=== PATIENT | female | born 1955 | race African-American/Black ===

== ENCOUNTER → 2016-10-31 | Emergency (ER) | payer OTHER ==
[~2016-10-31] VITALS: Ht 175.3 cm; Wt 90.7 kg
[~2016-10-31] MED LIST: DILANTIN100 MG ORAL; PHENOBARBITAL100 MG ORAL; PHENOBARBITAL30 MG ORAL; Phenytoin 100mg cap ORAL ONE
[2016-10-31 13:37] VITALS: BP 127/87
[2016-10-31 14:30] VITALS: BP 134/81
[2016-10-31 14:41] LABS: BASOPHILS % (AUTO) 0.4 % (0.0-2.0); EOSINOPHILS % (AUTO) 0.8 % (0.0-3.0); LYMPHOCYTES % (AUTO) 14.2 % (20.0-45.0); MEAN CORPUSCULAR HEMOGLOBIN 28.2 PG (27.0-31.0); MEAN CORPUSCULAR HGB CONC 31.5 G/DL (32.0-36.0); MEAN CORPUSCULAR VOLUME 90 FL (80-99); MEAN PLATELET VOLUME 6.3 FL (6.5-10.1); NEUTROPHILS % (AUTO) 80.6 % (45.0-75.0); PLATELET COUNT 252 K/UL (150-450); RED BLOOD COUNT 5.17 M/UL (4.20-5.40); RED CELL DISTRIBUTION WIDTH 13.1 % (11.6-14.8); WHITE BLOOD COUNT 10.7 K/UL (4.8-10.8)
[2016-10-31 14:48] LABS: ANION GAP 17 (5-15); CALCIUM 9.7 mg/dL (8.6-10.2); CARBON DIOXIDE 23 mEQ/L (20-30); CHLORIDE 99 mEQ/L (98-107); CREATININE 0.7 mg/dL (0.5-0.9); GLOMERULAR FILTRATION RATE > 60 mL/min (>60); HEMOLYSIS 28; SODIUM 139 mEQ/L (135-145)
--- NOTE | 2016-10-31 14:51 | Emergency Room Report ---
History of Present Illness General Chief Complaint: Seizure Source: Patient, EMS Present Illness HPI Patient reports a history of seizure disorder she stopped taking her medications Several months ago as she was not having any further seizures Denies any chest pain or shortness breath Denies any neck pain or photophobia At this time his GCS 15 Patient was taking phenobarbital when necessary And Dilantin Denies any recent other trauma or fall Denies any focal weakness Allergies: Coded Allergies: No Known Allergies (Unverified , 10/31/16) Patient History Past Medical History: see triage record Pertinent Family History: none Reviewed Nursing Documentation: PMH: Agreed, PSxH: Agreed Nursing Documentation-PMH Hx Seizures: Yes Review of Systems All Other Systems: negative except mentioned in HPI Physical Exam Vital Signs Date Time Temp Pulse Resp B/P Pulse Ox O2 Delivery O2 Flow Rate FiO2 10/31/16 13:25 100 18 127/87 98 Room Air 10/31/16 13:37 98.0 Sp02 EP Interpretation: reviewed, normal General Appearance: well appearing, no apparent distress Head: normocephalic, atraumatic Eyes: bilateral eye EOMI, bilateral eye PERRL ENT: hearing grossly normal, normal pharynx, TMs + canals normal, uvula midline Neck: full range of motion, supple, no meningismus, no bony tend Respiratory: lungs clear, normal breath sounds, no rhonchi, no respiratory distress, no retraction, no accessory muscle use Cardiovascular #1: normal peripheral pulses, regular rate, rhythm, no edema, no gallop, no JVD, no murmur Gastrointestinal: normal bowel sounds, non tender, soft, no mass, no organomegaly, non-distended, no guarding, no hernia, no pulsatile mass, no rebound Genitourinary: no CVA tenderness Musculoskeletal: normal inspection Neurologic: oriented x3, responsive, stick welder III-XII nml as tested, motor strength/ tone normal, sensory intact Psychiatric: mood/affect normal Skin: normal color, no rash, warm/dry, palpation normal Lymphatic: normal inspection, no adenopathy Medical Decision Making Diagnostic Impression: Primary Impression: Seizure disorder ER Course Patient has at this time fully awake and alert GCS 15 Has a history of seizure disorder and therefore CAT scan imaging was not obtained Patient is already aware that she is not supposed to be driving and states that she does not drive Given her noncompliance of medication she was replaced with her Dilantin and phenobarbital baseline blood work are appropriate The patient discharged in stable condition Labs Test 10/31/16 14:30 White Blood Count 10.7 K/UL (4.8-10.8) Red Blood Count 5.17 M/UL (4.20-5.40) Hemoglobin 14.6 G/DL (12.0-16.0) Hematocrit 46.3 % (37.0-47.0) Mean Corpuscular Volume 90 FL (80-99) Mean Corpuscular Hemoglobin 28.2 PG (27.0-31.0) Mean Corpuscular Hemoglobin Concent 31.5 G/DL (32.0-36.0) Red Cell Distribution Width 13.1 % (11.6-14.8) Platelet Count 252 K/UL (150-450) Mean Platelet Volume 6.3 FL (6.5-10.1) Neutrophils (%) (Auto) 80.6 % (45.0-75.0) Lymphocytes (%) (Auto) 14.2 % (20.0-45.0) Monocytes (%) (Auto) 4.0 % (1.0-10.0) Eosinophils (%) (Auto) 0.8 % (0.0-3.0) Basophils (%) (Auto) 0.4 % (0.0-2.0) Sodium Level 139 mEQ/L (135-145) Potassium Level 4.0 mEQ/L (3.4-4.9) Chloride Level 99 mEQ/L (98-107) Carbon Dioxide Level 23 mEQ/L (20-30) Anion Gap 17 (5-15) Blood Urea Nitrogen 11 mg/dL (7-23) Creatinine 0.7 mg/dL (0.5-0.9) Estimat Glomerular Filtration Rate > 60 mL/min (>60) Glucose Level 104 mg/dL (74-106) Calcium Level 9.7 mg/dL (8.6-10.2) Last Vital Signs Date Time Temp Pulse Resp B/P Pulse Ox O2 Delivery O2 Flow Rate FiO2 10/31/16 13:37 100 18 Room Air 10/31/16 13:37 98.0 127/87 98 Status: improved Disposition: HOME, SELF-CARE Condition: Improved Scripts Phenobarbital* (PHENOBARBITAL*) 30 Mg Tablet 30 MG ORAL THREE TIMES A DAY, #30 TAB 0 Refills Prov: KAUSHAL HERRERA D.O. 10/31/16 Phenytoin Sodium Extended* (DILANTIN*) 100 Mg Capsule 100 MG ORAL THREE TIMES A DAY, #90 CAP 0 Refills Prov: KAUSHAL HERRERA D.O. 10/31/16 Additional Instructions: Patient is provided with the discharge instructions notified to follow up with primary doctor in the next 2-3 days otherwise return to the er with any worsening symptoms. Please note that this report is being documented using [employer] technology. This can lead to erroneous entry secondary to incorrect interpretation by the dictating instrument. KAUSHAL HERRERA D.O. Oct 31, 2016 14:51
[2016-10-31 15:40] VITALS: BP 134/81
== END | disposition home or self-care (01) ==
LOC: EDBD 13:32 → EMR 15:45
DX: G40.909 Epilepsy, unspecified, not intractable, without status epilepticus (principal)
CPT/HCPCS: 36415; 80048; 85025; 99284

== ENCOUNTER 2017-04-10 21:41 | Emergency (ER) | payer OTHER ==
[~2017-04-10] VITALS: Ht 170.2 cm; Wt 90.7 kg
[~2017-04-10 21:41] MED LIST changes: -Phenytoin 100mg cap ORAL ONE
[2017-04-10] MEDS ORDERED: levETIRAcetam 1,000mg/NS100ml 100 ML IVPB ONE (22:15)
[2017-04-10 22:40] VITALS: BP 136/82
[2017-04-10 23:05] VITALS: BP 140/71
[2017-04-10] MEDS ORDERED: Miralax 17gm pkt ORAL PRN (23:15)
[2017-04-10] MEDS ORDERED: Zolpidem 5mg tab ORAL PRN (23:15)
[2017-04-10] MEDS ORDERED: LORazepam Inj 2mg/ml 1ml IV PRN (23:15)
[2017-04-10] MEDS ORDERED: Morphine Sulfate 2mg/ml Inj IVP PRN (23:15)
[2017-04-10] MEDS ORDERED: Mylanta II UD 30ml ORAL PRN (23:15)
[2017-04-10] MEDS ORDERED: KEPPRA500 M4 ORAL (23:42)
--- NOTE | 2017-04-10 23:43 | Emergency Room Report ---
History of Present Illness General Chief Complaint: Seizure Source: Patient, Medical Record Present Illness HPI This is a 62-year-old female with a history of seizure. She takes phenobarbital Dilantin. She's her Dilantin gives her a headache and dizziness. She is compliant however. Her daughter called 911 because she has a tonic- clonic seizure activity lasting for about 10 minutes. She did have oral trauma incontinence or urine. EMS gave her Versed. She was postictal on arrival. After about 10 minutes she is awake and back to baseline. Allergies: Coded Allergies: No Known Allergies (Unverified , 10/31/16) Patient History Past Medical History: see triage record, old chart reviewed, seizures Past Surgical History: other Pertinent Family History: none Social History: Denies: smoking Last Menstrual Period: unknow Now: No Immunizations: other Reviewed Nursing Documentation: PMH: Agreed, PSxH: Agreed Nursing Documentation-PMH Past Medical History: No History, Except For Hx Seizures: Yes Review of Systems Eye: Denies: blurred vision, eye pain ENT: Denies: ear pain, nose congestion, throat swelling Respiratory: Denies: cough, shortness of breath Cardiovascular: Denies: chest pain, palpitations Gastrointestinal: Denies: abdominal pain, diarrhea, nausea, vomiting Musculoskeletal: Denies: back pain, joint pain Skin: Denies: rash Neurological: Denies: headache, numbness Endocrine: Denies: increased thirst, increased urine Hematologic/Lymphatic: Denies: easy bruising All Other Systems: negative except mentioned in HPI Physical Exam Vital Signs Date Time Temp Pulse Resp B/P Pulse Ox O2 Delivery O2 Flow Rate FiO2 04/10/17 21:38 98.8 90 20 136/82 98 Room Air vitals normal Sp02 EP Interpretation: reviewed, normal General Appearance: well appearing, no apparent distress, alert Head: normocephalic, atraumatic Eyes: bilateral eye EOMI, bilateral eye PERRL ENT: hearing grossly normal, normal pharynx, other - Tongue abrasion on left side Neck: full range of motion, supple, no meningismus Respiratory: chest non-tender, lungs clear, normal breath sounds Cardiovascular #1: regular rate, rhythm, no murmur Gastrointestinal: normal bowel sounds, non tender, no mass, no organomegaly, no bruit, non-distended Musculoskeletal: back normal, gait/station normal, normal range of motion Psychiatric: mood/affect normal Skin: warm/dry Medical Decision Making Diagnostic Impression: Primary Impression: Epileptic seizure, generalized ER Course patient was seizure activity. We'll switch to Keppra. Back to baseline. No need for labs or CT scan. Last Vital Signs Date Time Temp Pulse Resp B/P Pulse Ox O2 Delivery O2 Flow Rate FiO2 04/10/17 22:40 98.8 20 136/82 98 Room Air 04/10/17 21:38 90 Status: improved Disposition: HOME, SELF-CARE Condition: Stable Scripts Levetiracetam (KEPPRA) 500 Mg Tablet 500 MG ORAL EVERY 12 HOURS, #60 TAB 0 Refills Prov: LUISITO RICHARDS M.D. 04/10/17 Referrals: Vandana TAMEZ,REFERRING (PCP) Patient Instructions: Seizure, Adult Additional Instructions: Followup with your Dr. in 2-3 days. Return if symptom worsen. LUISITO RICHARDS M.D. Apr 10, 2017 23:42
[2017-04-11] MEDS ORDERED: Heparin 5000 units/ml inj SUBQ SCH (09:00)
[2017-04-11] MEDS ORDERED: Phenytoin 100mg cap ORAL SCH (09:00)
== END 2017-04-10 23:05 | disposition home or self-care (01) ==
LOC: EDBD 21:41 → EMR 22:18
DX: G40.909 Epilepsy, unspecified, not intractable, without status epilepticus (principal); S00.512A Abrasion of oral cavity, initial encounter; X58.XXXA Exposure to other specified factors, initial encounter; Y93.9 Activity, unspecified; Y92.9 Unspecified place or not applicable
CPT/HCPCS: 96360; 99284; J1953

== ENCOUNTER 2018-09-23 18:32 | Inpatient (IN) | payer MEDICARE, OTHER ==
[~2018-09-23] VITALS: Ht 176.5 cm; Wt 83.5 kg
[~2018-09-23 18:32] MED LIST changes: +KEPPRA500 M4 ORAL
--- NOTE | 2018-09-23 22:05 | NUR ---
NURSE NOTES: Received pt from Ambulance personnel, took report from EBONY Machado over the phone. Pt awake, alert, and c/o pain. Seizure precautions in place. Skin intact. Pt slightly lethargic. Bed in lowest position. Call light within reach. Lung sounds clear. Will contact Dr. Alvarado for orders. Will continue to monitor.
--- NOTE | 2018-09-23 22:11 | NUR ---
NURSE NOTES: Called and left a message with Dr. Alvarado for admission orders. Awaiting call back.
[2018-09-24] MEDS ORDERED: LORazepam Inj 2mg/ml 1ml IV PRN
[2018-09-24] MEDS ORDERED: OXCARBAZEPINE300 MG PO (00:46)
[2018-09-24] MEDS: cefTRIAXone 1 GM in D5W 55 ML IVPB SCH (03:00)
[2018-09-24 04:51] VITALS: BP 152/86
--- NOTE | 2018-09-24 05:46 | NUR ---
NURSE NOTES: Daughter informed me that [facility] documentation on the pts home meds is wrong, She actually only takes trileptal and zonisamide at home. Called and left a message with Dr. Alvarado informing him of the changes to home meds. Awaiting call back.
[2018-09-24] MEDS ORDERED: Phenytoin 100mg cap ORAL SCH (06:00)
--- NOTE | 2018-09-24 07:30 | NUR ---
NURSE NOTES: Received report from Paige BECK. Pt is awake, alert, oriented x4, resting in bed. On room air with no respiratory distress. Reports mild chronic back pain, will offer PRN pain med as needed/ordered. IV access on left hand #22G saline lock, patent/intact. Skin is intact. Per shift production associate nurse report and verification from pt, pt is ambulatory with steady gait. Pt is on seizure precaution, side rails padded, suction and oxygen access set up at bedside. Call light is placed within easy reach, bed in lowest position, two side rails up, brakes engaged.
[2018-09-24 08:00] VITALS: BP 151/88
[2018-09-24 08:21] LABS: BASOPHILS % (AUTO) 0.7 % (0.0-2.0); EOSINOPHILS % (AUTO) 0.3 % (0.0-3.0); HEMATOCRIT 40.2 % (37.0-47.0); HEMOGLOBIN 13.2 G/DL (12.0-16.0); MEAN CORPUSCULAR VOLUME 91 FL (80-99); MONOCYTES % (AUTO) 6.1 % (1.0-10.0); PLATELET COUNT 243 K/UL (150-450); RED CELL DISTRIBUTION WIDTH 12.8 % (11.6-14.8); WHITE BLOOD COUNT 8.9 K/UL (4.8-10.8)
[2018-09-24 08:58] LABS: ALANINE AMINOTRANSFERASE 22 U/L (12-78); ALBUMIN 3.6 G/DL (3.4-5.0); ALBUMIN/GLOBULIN RATIO 0.8 (1.0-2.7); ALKALINE PHOSPHATASE 77 U/L (46-116); ANION GAP 9 mmol/L (5-15); ASPARTATE AMINO TRANSFERASE 20 U/L (15-37); BILIRUBIN,TOTAL 0.5 MG/DL (0.2-1.0); BLOOD UREA NITROGEN 12 mg/dL (7-18); CALCIUM 9.7 MG/DL (8.5-10.1); CARBON DIOXIDE 26 MMOL/L (21-32); CHLORIDE 104 MMOL/L (98-107); CREATININE 0.8 MG/DL (0.55-1.30); PHOSPHORUS 2.7 MG/DL (2.5-4.9); POTASSIUM 3.5 MMOL/L (3.5-5.1); SODIUM 139 MMOL/L (136-145)
[2018-09-24] MEDS: OXcarbazepine 150mg tab ORAL SCH (10:02)
[2018-09-24 12:00] VITALS: BP 168/91
--- NOTE | 2018-09-24 13:28 | Consultation ---
History of Present Illness General Date patient seen: Sep 24, 2018 Present Illness HPI 63 year female with hx of seizures, stopped her seizure medications some time ago, had seizures again was taken to [facility]. After initial treatment she is transferred to [facility] for further management. She is awake now and doesn't remember what exactly happened. Allergies: Coded Allergies: No Known Allergies (Unverified , 10/31/16) Medication History Scheduled Levetiracetam (Keppra), 500 MG ORAL EVERY 12 HOURS Phenobarbital (Phenobarbital), 100 MG ORAL EVERY 8 HOURS, (Reported) Phenobarbital* (Phenobarbital*), 30 MG ORAL THREE TIMES A DAY Phenytoin Sodium Extended* (Dilantin*), 100 MG ORAL THREE TIMES A DAY, (Reported ) Phenytoin Sodium Extended* (Dilantin*), 300 MG ORAL BEDTIME, (Reported) Phenytoin Sodium Extended* (Dilantin*), 100 MG ORAL THREE TIMES A DAY Miscellaneous Medications Oxcarbazepine (Oxcarbazepine), 300 MG PO, (Reported) Patient History Healthcare decision maker Laurence Resuscitation status Full Code Advanced Directive on File Past Medical/Surgical History Past Medical/Surgical History: (1) Seizure disorder Review of Systems All Other Systems: negative except mentioned in HPI Physical Exam General Appearance: WD/WN Lines, tubes and drains: peripheral, central line HEENT: normocephalic, anicteric Neck: non-tender, normal alignment Respiratory/Chest: chest wall non-tender, lungs clear Breasts: no masses Cardiovascular/Chest: normal rate Abdomen: normal bowel sounds, no organomegaly Genitourinary/Rectal: normal genital exam Last 24 Hour Vital Signs Date Time Temp Pulse Resp B/P (MAP) Pulse Ox O2 Delivery O2 Flow Rate FiO2 09/24/18 12:00 98.2 85 16 168/91 (116) 98 09/24/18 09:00 Room Air 09/24/18 08:00 98.6 66 18 151/88 (109) 97 09/24/18 08:00 66 09/24/18 04:51 99.5 80 18 152/86 (108) 97 09/24/18 04:00 64 09/24/18 03:03 Room Air 09/24/18 00:00 72 Intake and Output 09/23/18 09/24/18 19:00 07:00 Intake Total 100 ml Balance 100 ml Intake Oral 100 ml Laboratory Tests Test 09/24/18 07:35 White Blood Count 8.9 K/UL (4.8-10.8) Red Blood Count 4.40 M/UL (4.20-5.40) Hemoglobin 13.2 G/DL (12.0-16.0) Hematocrit 40.2 % (37.0-47.0) Mean Corpuscular Volume 91 FL (80-99) Mean Corpuscular Hemoglobin 30.1 PG (27.0-31.0) Mean Corpuscular Hemoglobin Concent 32.9 G/DL (32.0-36.0) Red Cell Distribution Width 12.8 % (11.6-14.8) Platelet Count 243 K/UL (150-450) Mean Platelet Volume 6.4 FL (6.5-10.1) L Neutrophils (%) (Auto) 73.0 % (45.0-75.0) Lymphocytes (%) (Auto) 20.0 % (20.0-45.0) Monocytes (%) (Auto) 6.1 % (1.0-10.0) Eosinophils (%) (Auto) 0.3 % (0.0-3.0) Basophils (%) (Auto) 0.7 % (0.0-2.0) Sodium Level 139 MMOL/L (136-145) Potassium Level 3.5 MMOL/L (3.5-5.1) Chloride Level 104 MMOL/L (98-107) Carbon Dioxide Level 26 MMOL/L (21-32) Anion Gap 9 mmol/L (5-15) Blood Urea Nitrogen 12 mg/dL (7-18) Creatinine 0.8 MG/DL (0.55-1.30) Estimat Glomerular Filtration Rate > 60 mL/min (>60) Glucose Level 96 MG/DL (74-106) Calcium Level 9.7 MG/DL (8.5-10.1) Phosphorus Level 2.7 MG/DL (2.5-4.9) Magnesium Level 2.1 MG/DL (1.8-2.4) Total Bilirubin 0.5 MG/DL (0.2-1.0) Aspartate Amino Transf (AST/SGOT) 20 U/L (15-37) Alanine Aminotransferase (ALT/SGPT) 22 U/L (12-78) Alkaline Phosphatase 77 U/L (46-116) Total Protein 8.0 G/DL (6.4-8.2) Albumin 3.6 G/DL (3.4-5.0) Globulin 4.4 g/dL Albumin/Globulin Ratio 0.8 (1.0-2.7) L Height (Feet): 5 Height (Inches): 9.50 Weight (Pounds): 184 Medications Current Medications Medications (Trade) Dose Ordered Sig/Trey Route PRN Reason Start Time Stop Time Status Last Admin Dose Admin Acetaminophen (Tylenol) 650 mg Q6H PRN ORAL Mild Pain/Temp > 100.5 09/24/18 00:00 10/24/18 00:00 09/24/18 04:10 Ceftriaxone Sodium 1 gm/ Dextrose 55 ml @ 110 mls/hr Q24H IVPB 09/24/18 03:00 10/01/18 02:59 09/24/18 03:00 Heparin Sodium (Porcine) (Heparin 5000 units/ml) 5,000 units EVERY 12 HOURS SUBQ 09/24/18 21:00 10/24/18 20:59 Lorazepam (Ativan 2mg/ml 1ml) 1 mg Q4H PRN IV For Anxiety 09/24/18 00:00 10/01/18 00:00 Oxcarbazepine (Trileptal) 300 mg DAILY ORAL 09/24/18 09:00 10/24/18 08:59 09/24/18 10:02 Zonisamide (Zonegran) 200 mg QHS ORAL 09/24/18 21:00 10/24/18 20:59 Assessment/Plan Problem List: (1) Non-compliance ICD Codes: Z91.19 - Patient's noncompliance with other medical treatment and regimen SNOMED: 0096366 (2) Acute encephalopathy ICD Codes: G93.40 - Encephalopathy, unspecified SNOMED: 59097856, 000090457 (3) Seizure disorder ICD Codes: G40.909 - Epilepsy, unspecified, not intractable, without status epilepticus SNOMED: 203354521 Assessment/Plan resume seizure meds neurology to see dvt prophylaxis symptomatic treatment Gill Monzon MD Sep 24, 2018 13:28
[2018-09-24] MEDS: Phenytoin 100mg cap ORAL SCH ×2 (14:51→21:14)
[2018-09-24 16:00] VITALS: BP 155/59
--- NOTE | 2018-09-24 16:31 | NUR ---
CASE MANAGEMENT:REVIEW 09/24/18 TRANSFERRED FROM FROM [facility] CC: NON COMPLIANT WITH MEDICATION SI: SEIZURE DISORDER ACUTE ENCEPHALOPATHY 98.2 85 16 168/91 98% ON RA IS: KEPPRA PO Q12 PHENOBARBITAL PO Q8 DILANTIN PO Q8 TRILEPTAL PO QD IV ROCEPHIN Q24 : TELEMETRY
--- NOTE | 2018-09-24 16:41 | NUR ---
INTERQUAL CRITERIA MET FOR OBSERVATION
--- NOTE | 2018-09-24 19:00 | History & Physical ---
History and Physical History & Physicial Dictated for Int Med-Dr Alvarado no. [id number]. Khari Valdez MD Sep 24, 2018 19:00
--- NOTE | 2018-09-24 19:28 | NUR ---
HAND-OFF: Report given to Jose Eduardo BECK. Pt is resting in bed in stable condition. Endorsed plan of care.
--- NOTE | 2018-09-24 19:30 | NUR ---
NURSE NOTES: Received report from EBONY Boo. Patient resting in bed with no signs of acute distress. Respiration even and non labored on room air. Seizure precaution observed. Side rails padded. Bed in lowest position. AOx4. Vital signs stable. Will continue plan of care.
[2018-09-24 20:00] VITALS: BP 161/86
--- NOTE | 2018-09-24 21:15 | History and Physical Report ---
DATE OF ADMISSION: 09/23/2018 DATE OF EVALUATION: 09/24/2018 CHIEF COMPLAINT: The patient is a 63-year-old, female with a history of seizure disorder who presents with complaint of seizure. HISTORY OF PRESENT ILLNESS: The patient states she ran out of her medications approximately 5 days ago. The patient was at home with her mother yesterday, 09/23/2018. The patient had several witnessed seizures by her mother. EMS was called. The patient was transported initially to [facility] emergency room. The patient is transferred to [facility] for insurance purposes. The patient presents with a chief complaint of seizures. REVIEW OF SYSTEMS: CONSTITUTIONAL: The patient denies weight loss or gain. The patient denies fevers or chills. HEENT: The patient denies ear or throat pain. The patient denies headache. CARDIOVASCULAR: The patient denies palpitations or chest pain. CHEST: The patient denies wheeze or shortness of breath. ABDOMEN: The patient denies nausea, vomiting, diarrhea, or constipation. GENITOURINARY: The patient denies dysuria or increased frequency of urination. NEUROMUSCULAR: The patient complains of seizure disorder as above. The patient denies generalized weakness. PAST MEDICAL HISTORY: Significant for: 1. Seizure disorder. 2. Hypertension. PAST SURGICAL HISTORY: Significant for section x3. CURRENT MEDICATIONS: 1. Oxcarbazepine 300 mg 1 tablet p.o. daily. 2. Dilantin 100 mg p.o. 3 times daily. 3. Phenobarbital 30 mg p.o. 3 times daily. ALLERGIES: No known drug allergies. SOCIAL HISTORY: The patient is single and lives alone. The patient admits to tobacco use of one-quarter pack per day. The patient denies alcohol use. PHYSICAL EXAMINATION: VITAL SIGNS: Temperature 100.0 degrees Fahrenheit, pulse 85, blood pressure 136/87, and respirations 18. GENERAL: The patient is a well-developed, well-nourished female, in no apparent distress. HEENT: Eyes, pupils equal and responsive to light and accommodation. Extraocular movements are intact. NECK: Supple. No lymphadenopathy. CHEST: Lungs are clear to auscultation bilaterally without wheezes or rales. CARDIOVASCULAR: Regular rhythm and rate. S1, S2 normal without murmurs, rubs, or gallops. ABDOMEN: Soft, nontender, nondistended. Positive bowel sounds. No evidence of hepatosplenomegaly. Currently, no rebound or guarding noted. EXTREMITIES: No clubbing, cyanosis, edema. RECTAL/GENITAL: Refused. NEUROLOGIC: Cranial nerves II through XII are grossly intact without focal deficits. Motor strength is 5/5 bilaterally. Deep tendon reflexes are 2+ plantar. LABORATORY STUDIES: WBC 11.0, hemoglobin 13.3, hematocrit 40.0, and platelets 242,000. Sodium 137, potassium 4.5, chloride 103, CO2 23, BUN 10, creatinine 0.65, and glucose 98. ASSESSMENT: This is a 63-year-old female. 1. Seizure disorder. 2. Hypertension. 3. Postictal. TREATMENT: 1. Seizure. The patient has been started empirically on Keppra, phenobarbital, Dilantin and Trileptal. A neurology consultation has been obtained with Dr. De Luna. We will follow recommendations of Dr. De Luna. 2. Hypertension. The patient is currently on amlodipine 10 mg p.o. daily. 3. Postictal state. Khari Valdez M.D. DR: TONEY JOB#: [id number] CC:
[2018-09-24] MEDS: Heparin 5000 units/ml inj SUBQ SCH (21:17)
[2018-09-25] VITALS: BP 159/85
[2018-09-25] MEDS: cefTRIAXone 1 GM in D5W 55 ML IVPB SCH (03:06)
[2018-09-25 04:00] VITALS: BP 168/91
[2018-09-25] MEDS: Phenytoin 100mg cap ORAL SCH (05:48)
--- NOTE | 2018-09-25 06:55 | NUR ---
HAND-OFF: Report given to EBONY Lowe. Patient in bed asleep. Vitals signs stable.
--- NOTE | 2018-09-25 07:00 | NUR ---
NURSE NOTES: Received report from EBONY Phelan. Patient is resting in bed, in stable condition. No s/sx of SOB, breathing is even and unlabored. Denies any presence of pain or discomfort at this time. Bed is in lowest position, brakes engaged. Call light is kept within easy reach. Will continue to monitor patient.
[2018-09-25 07:50] LABS: BASOPHILS % (AUTO) 0.4 % (0.0-2.0); EOSINOPHILS % (AUTO) 0.3 % (0.0-3.0); HEMATOCRIT 41.7 % (37.0-47.0); HEMOGLOBIN 13.7 G/DL (12.0-16.0); MEAN CORPUSCULAR VOLUME 91 FL (80-99); MONOCYTES % (AUTO) 5.8 % (1.0-10.0); NEUTROPHILS % (AUTO) 72.6 % (45.0-75.0); PLATELET COUNT 230 K/UL (150-450); RED BLOOD COUNT 4.58 M/UL (4.20-5.40); RED CELL DISTRIBUTION WIDTH 12.6 % (11.6-14.8); WHITE BLOOD COUNT 8.2 K/UL (4.8-10.8)
[2018-09-25 08:22] LABS: ANION GAP 10 mmol/L (5-15); BLOOD UREA NITROGEN 9 mg/dL (7-18); CALCIUM 9.9 MG/DL (8.5-10.1); CARBON DIOXIDE 26 MMOL/L (21-32); CHLORIDE 104 MMOL/L (98-107); CREATININE 0.8 MG/DL (0.55-1.30); POTASSIUM 3.7 MMOL/L (3.5-5.1); SODIUM 140 MMOL/L (136-145)
[2018-09-25] MEDS: OXcarbazepine 150mg tab ORAL SCH (08:32)
[2018-09-25] MEDS: Heparin 5000 units/ml inj SUBQ SCH (08:34)
[2018-09-25 09:00] VITALS: BP 143/81
--- NOTE | 2018-09-25 10:46 | NUR ---
TRANSFER TO FLOOR: Patient transferred to [facility], per Dr. Monzon. Report given to EBONY Wood. Belongings and medications given to EBONY Wood. Family informed of transfer.
--- NOTE | 2018-09-25 10:46 | NUR ---
NURSE NOTES: Received patient from Mynor RN, patient belongings reviewed, no discrepancies noted, no distress noted, patient is alert and cooperative and pleasant, bed is locked and in lowest position, call light within reach, will continue to monitor.
--- NOTE | 2018-09-25 10:58 | Pulmonology Progress Note ---
Assessment/Plan Problems: (1) Non-compliance (2) Acute encephalopathy (3) Seizure disorder Assessment/Plan no more seizures pt wants to go home med/recon done f/u by neurologist as outpatient prescription done Subjective ROS Limited/Unobtainable: No Constitutional: Reports: no symptoms HEENT: Repors: no symptoms Respiratory: Reports: no symptoms Allergies: Coded Allergies: No Known Allergies (Unverified , 10/31/16) Objective Last 24 Hour Vital Signs Date Time Temp Pulse Resp B/P (MAP) Pulse Ox O2 Delivery O2 Flow Rate FiO2 09/25/18 09:00 97.7 83 20 143/81 (101) 99 09/25/18 09:00 Room Air 09/25/18 08:31 71 143/81 09/25/18 04:00 98.4 77 20 168/91 (116) 99 09/25/18 04:00 72 09/25/18 00:00 65 09/25/18 00:00 98.3 70 18 159/85 (109) 96 09/24/18 21:00 Room Air 09/24/18 20:00 65 09/24/18 20:00 98.9 66 18 161/86 (111) 94 09/24/18 16:00 64 09/24/18 16:00 97.9 68 18 155/59 (91) 95 09/24/18 15:24 98.2 09/24/18 14:52 85 168/91 09/24/18 12:00 98.2 85 16 168/91 (116) 98 09/24/18 12:00 65 Intake and Output 09/24/18 09/25/18 19:00 07:00 Intake Total 450 ml 300 ml Balance 450 ml 300 ml Intake Oral 300 ml Other 450 ml General Appearance: WD/WN HEENT: normocephalic, atraumatic, PERRL Respiratory/Chest: lungs clear, no respiratory distress Breasts: no masses Cardiovascular: regular rhythm Abdomen: normal bowel sounds Genitourinary: normal external genitalia Skin: no rash Neurologic/Psychiatric: head of product II-XII grossly normal Laboratory Tests 09/25/18 06:20: White Blood Count 8.2, Red Blood Count 4.58, Hemoglobin 13.7, Hematocrit 41.7, Mean Corpuscular Volume 91, Mean Corpuscular Hemoglobin 30.0, Mean Corpuscular Hemoglobin Concent 32.9, Red Cell Distribution Width 12.6, Platelet Count 230, Mean Platelet Volume 6.1L, Neutrophils (%) (Auto) 72.6, Lymphocytes (%) (Auto) 21.0, Monocytes (%) (Auto) 5.8, Eosinophils (%) (Auto) 0.3, Basophils (%) (Auto ) 0.4, Sodium Level 140, Potassium Level 3.7, Chloride Level 104, Carbon Dioxide Level 26, Anion Gap 10, Blood Urea Nitrogen 9, Creatinine 0.8, Estimat Glomerular Filtration Rate > 60, Glucose Level 102, Calcium Level 9.9 Current Medications Medications (Trade) Dose Ordered Sig/Trey Route PRN Reason Start Time Stop Time Status Last Admin Dose Admin Acetaminophen (Tylenol) 650 mg Q6H PRN ORAL Mild Pain/Temp > 100.5 09/25/18 11:00 10/24/18 10:59 Amlodipine Besylate (Norvasc) 10 mg DAILY ORAL 09/26/18 09:00 10/24/18 14:41 Ceftriaxone Sodium 1 gm/ Dextrose 55 ml @ 110 mls/hr Q24H IVPB 09/26/18 03:00 10/01/18 02:59 Heparin Sodium (Porcine) (Heparin 5000 units/ml) 5,000 units EVERY 12 HOURS SUBQ 09/25/18 21:00 10/24/18 20:59 Levetiracetam (Keppra) 500 mg EVERY 12 HOURS ORAL 09/25/18 21:00 10/24/18 20:59 Lorazepam (Ativan 2mg/ml 1ml) 1 mg Q4H PRN IV For Anxiety 09/25/18 11:00 10/01/18 10:59 Oxcarbazepine (Trileptal) 300 mg DAILY ORAL 09/26/18 09:00 10/24/18 08:59 Phenobarbital (PHENobarbital) 97.2 mg EVERY 8 HOURS ORAL 09/25/18 14:00 10/24/18 13:59 Phenytoin (Dilantin) 100 mg Q8HR ORAL 09/25/18 14:00 10/24/18 13:59 Zonisamide (Zonegran) 200 mg QHS ORAL 09/25/18 21:00 10/24/18 20:59 Gill Monzon MD Sep 25, 2018 10:58
[2018-09-25] MEDS ORDERED: TRILEPTAL150 M2 ORAL (11:00)
[2018-09-25] MEDS ORDERED: DILANTIN100 MG ORAL (11:00)
[2018-09-25] MEDS ORDERED: KEPPRA500 MG ORAL (11:00)
[2018-09-25] MEDS ORDERED: LORazepam Inj 2mg/ml 1ml IV PRN (11:00)
[2018-09-25] MEDS ORDERED: NORVASC10 MG ORAL (11:00)
[2018-09-25] MEDS ORDERED: ZONEGRAN100 MG ORAL (11:00)
[2018-09-25] MEDS ORDERED: PHENOBARBITAL100 MG ORAL (11:00)
[2018-09-25 12:00] VITALS: BP 143/97
--- NOTE | 2018-09-25 13:24 | NUR ---
Patient discharged per MD order, belongings reviewed, no discrepancies noted, left hand IV removed, no issues noted, ID band removed, home medications returned from downstairs pharmacy, new prescriptions filled and delivered from pharmacy across the street, discharge paperwork reviewed, patient to follow up with neurologist, no distress noted, patient picked up by daughter and transferred via private vehicle, daughter to come back tomorrow to apple picking supervisor remaining meds from pharmacy.
[2018-09-25] MEDS ORDERED: NS 275ml ONE (13:41)
[2018-09-25] MEDS ORDERED: Tubing IV Secondary IV ONE (13:41)
[2018-09-25] MEDS ORDERED: Phenytoin 100mg cap ORAL SCH (14:00)
[2018-09-25] MEDS ORDERED: Heparin 5000 units/ml inj SUBQ SCH (21:00)
[2018-09-26] MEDS ORDERED: cefTRIAXone 1 GM in D5W 55 ML IVPB SCH (03:00)
[2018-09-26] MEDS ORDERED: OXcarbazepine 150mg tab ORAL SCH (09:00)
--- NOTE | 2018-09-27 08:50 | Discharge Summary ---
Discharge Summary Discharge Summary _ DATE OF ADMISSION: 09/23/2018 DATE OF DISCHARGE: 09/25/2018 DISCHARGED BY: Dr. Alvarado REASON FOR ADMISSION: 63 years old female with past medical history of seizure and hypertension initially presented to [facility] emergency department due to several witnessed episodes of seizure. While visiting her daughter, she had several episodes of witnessed seizure at her house. Paramedics were called . and patient was subsequently was brought to [facility] ED for further evaluation and management. Patient's daughter suspected that her mother was not taking her medications . No alcohol use, but smoking 1 pack a day. In ED patient was postictal . Ativan IV and loading dose of Keppra provided. Urinalysis was consistent with UTI, patient had low grade fever. Patient was started on broad spectrum antibiotic. Patient under care at [facility]. No beds available at [facility]. Patient subsequently was transferred to [facility]. CONSULTANTS: pulmonary Dr. Monzon [facility] COURSE: [] Patient admitted to medical surgical floor. Seizure precaution maintained. Multiply anticonvulsant regimen that patient was at home resumed , including Keppra, phenobarbital, Zonegran, Dilantin, Trileptal. No further seizure activity while in the hospital. Patient was continued on empiric antibiotic for UTI. Urine culture came back negative. Antibiotic stopped. No fever, no leukocytosis, no urinary complaints. DVT prophylaxis provided. Blood pressure was managed with calcium channel rubio and remained stable. Unfortunately unable to obtain neurology evaluation at this time in the hospital. Patient stabilized and wanted to go home. Patient was reminded on importance of compliance with medication regimen. Patient was counseled on smoking cessation. Patient was stable for discharge home with outpatient follow-up with [facility] provider and neurologist. FINAL DIAGNOSES: Seizure disorder with breakthrough seizure episode due to noncompliance Acute encephalopathy due to postictal state-resolved Noncompliance with medication Hypertension DISCHARGE MEDICATIONS: See Medication Reconciliation list. DISCHARGE INSTRUCTIONS: Patient was discharged home . Follow up with primary care provider at [facility] in one week. Follow-up with neurologist as outpatient. Patient was reminded and strongly encouraged to comply with anticonvulsant medication regimen. I have been assigned to dictate discharge summary for this account. I was not involved in the patient's management. Colleen Torres NP Sep 27, 2018 08:50
--- NOTE | 2018-09-27 19:48 | Cardiology Report ---
APPROVED REPORT EKG Measurement Heart [id number] NM [id number] Normal sinus rhythm Normal ECG
== END 2018-09-25 13:42 | disposition home or self-care (01) | DRG 101 ==
LOC: 2E 21:41 → 4E 09-25 10:41
DX: G40.909 Epilepsy, unspecified, not intractable, without status epilepticus (principal); N39.0 Urinary tract infection, site not specified; G93.49 Other encephalopathy; I10 Essential (primary) hypertension; F17.200 Nicotine dependence, unspecified, uncomplicated; Z91.14 Patient's other noncompliance with medication regimen
CPT/HCPCS: 36415; 80048; 80053; 80299; 83735; 84100; 85025; 87040; 87086; 93005